=== PATIENT | female | born 1960 | race Hispanic/Latino ===

== ENCOUNTER → 2018-12-27 | Outpatient (CLI) | payer OTHER ==
[~2018-12-27] MED LIST: HONEY 1 APPL/ML TUBE TP ONE
[2018-12-27 16:19] VITALS: BP 119/72
== END | disposition home or self-care (01) ==
LOC: WHH 13:15
PROVIDERS: ATTEND Family Medicine
DX: S61.002D Unspecified open wound of left thumb without damage to nail, subsequent encounter (principal); S61.001D Unspecified open wound of right thumb without damage to nail, subsequent encounter; S61.202D Unspecified open wound of right middle finger without damage to nail, subsequent encounter; S61.205D Unspecified open wound of left ring finger without damage to nail, subsequent encounter; E11.9 Type 2 diabetes mellitus without complications; F41.9 Anxiety disorder, unspecified; X58.XXXD Exposure to other specified factors, subsequent encounter
CPT/HCPCS: 11042; 87070; 87077; 87186; 88304; A4450; G0463

== ENCOUNTER → 2019-01-03 | Outpatient (CLI) | payer OTHER, MEDICARE ==
[~2019-01-03] MED LIST changes: -HONEY 1 APPL/ML TUBE TP ONE; +LIDOCAINE/PRILOCAINE CREAM 5GM TUBE TP ONE
[2019-01-03 16:46] VITALS: BP 98/56
== END | disposition home or self-care (01) ==
LOC: WHH 14:30
PROVIDERS: ATTEND Family Medicine
DX: S61.205D Unspecified open wound of left ring finger without damage to nail, subsequent encounter (principal); S61.402D Unspecified open wound of left hand, subsequent encounter; S61.001D Unspecified open wound of right thumb without damage to nail, subsequent encounter; S61.202D Unspecified open wound of right middle finger without damage to nail, subsequent encounter; E11.9 Type 2 diabetes mellitus without complications; F41.9 Anxiety disorder, unspecified; X58.XXXD Exposure to other specified factors, subsequent encounter
CPT/HCPCS: 11042; A6248; J3490

== ENCOUNTER → 2019-01-10 | Outpatient (CLI) | payer OTHER, MEDICARE ==
[2019-01-10 16:21] VITALS: BP 125/70
== END | disposition home or self-care (01) ==
LOC: WHH 13:30
PROVIDERS: ATTEND Family Medicine
DX: S61.203D Unspecified open wound of left middle finger without damage to nail, subsequent encounter (principal); S61.402D Unspecified open wound of left hand, subsequent encounter; S61.202D Unspecified open wound of right middle finger without damage to nail, subsequent encounter; S61.001D Unspecified open wound of right thumb without damage to nail, subsequent encounter; B07.9 Viral wart, unspecified; E11.9 Type 2 diabetes mellitus without complications; L84 Corns and callosities; F41.9 Anxiety disorder, unspecified; X58.XXXD Exposure to other specified factors, subsequent encounter
CPT/HCPCS: 11056; J3490

== ENCOUNTER → 2019-01-17 | Outpatient (CLI) | payer OTHER, MEDICARE ==
[2019-01-17 16:25] VITALS: BP_SYST 113; BP_SYST 99; BP_DIAS 61; BP_DIAS 70
== END | disposition home or self-care (01) ==
LOC: WHH 13:00
PROVIDERS: ATTEND Family Medicine
DX: S61.203D Unspecified open wound of left middle finger without damage to nail, subsequent encounter (principal); S61.402D Unspecified open wound of left hand, subsequent encounter; S61.202D Unspecified open wound of right middle finger without damage to nail, subsequent encounter; S61.001D Unspecified open wound of right thumb without damage to nail, subsequent encounter; B07.9 Viral wart, unspecified; E11.9 Type 2 diabetes mellitus without complications; L84 Corns and callosities; F41.9 Anxiety disorder, unspecified; X58.XXXD Exposure to other specified factors, subsequent encounter
CPT/HCPCS: 11056; J3490

== ENCOUNTER → 2019-01-24 | Outpatient (CLI) | payer OTHER, MEDICARE ==
[~2019-01-24] MED LIST changes: +LIDOCAINE HCL 2% JELLY 5 ML ONE; -LIDOCAINE/PRILOCAINE CREAM 5GM TUBE TP ONE
[2019-01-24 16:30] VITALS: BP 112/64
== END | disposition home or self-care (01) ==
LOC: WHH 13:00
PROVIDERS: ATTEND Family Medicine
DX: S61.202D Unspecified open wound of right middle finger without damage to nail, subsequent encounter (principal); S61.203D Unspecified open wound of left middle finger without damage to nail, subsequent encounter; S61.402D Unspecified open wound of left hand, subsequent encounter; S61.001D Unspecified open wound of right thumb without damage to nail, subsequent encounter; B07.9 Viral wart, unspecified; E11.9 Type 2 diabetes mellitus without complications; L84 Corns and callosities; F41.9 Anxiety disorder, unspecified; X58.XXXD Exposure to other specified factors, subsequent encounter
CPT/HCPCS: 11042; 87070; A6248

== ENCOUNTER → 2019-01-31 | Outpatient (CLI) | payer OTHER, MEDICARE ==
[2019-01-31 14:57] VITALS: BP 110/80
== END | disposition home or self-care (01) ==
LOC: WHH 13:00
PROVIDERS: ATTEND Family Medicine
DX: S61.202D Unspecified open wound of right middle finger without damage to nail, subsequent encounter (principal); S61.203D Unspecified open wound of left middle finger without damage to nail, subsequent encounter; S61.402D Unspecified open wound of left hand, subsequent encounter; S61.001D Unspecified open wound of right thumb without damage to nail, subsequent encounter; E11.9 Type 2 diabetes mellitus without complications; B07.9 Viral wart, unspecified; F41.9 Anxiety disorder, unspecified; X58.XXXD Exposure to other specified factors, subsequent encounter
CPT/HCPCS: G0463

== ENCOUNTER → 2019-02-07 | Outpatient (CLI) | payer OTHER, MEDICARE ==
[~2019-02-07] MED LIST changes: -LIDOCAINE HCL 2% JELLY 5 ML ONE; +LIDOCAINE/PRILOCAINE CREAM 5GM TUBE TP ONE
[2019-02-07 15:29] VITALS: BP 97/56
== END | disposition home or self-care (01) ==
LOC: WHH 13:00
PROVIDERS: ATTEND Family Medicine
DX: S61.202D Unspecified open wound of right middle finger without damage to nail, subsequent encounter (principal); S61.203D Unspecified open wound of left middle finger without damage to nail, subsequent encounter; S61.402D Unspecified open wound of left hand, subsequent encounter; S61.001D Unspecified open wound of right thumb without damage to nail, subsequent encounter; E11.9 Type 2 diabetes mellitus without complications; B07.9 Viral wart, unspecified; F41.9 Anxiety disorder, unspecified; X58.XXXD Exposure to other specified factors, subsequent encounter
CPT/HCPCS: 11426; J3490; 17110

== ENCOUNTER → 2019-02-14 | Outpatient (CLI) | payer OTHER, MEDICARE ==
[2019-02-14 14:16] VITALS: BP 109/56
--- NOTE | 2019-02-14 14:31 | NUR ---
[facility]ARIMI PERFORMED SURGICAL EXCISION TO WOUNDS #1,2,3,4 WITHOUT INCIDENT, PATIENT TOLERATED PROCEDURE WELL. Addendum: 02/14/19 at 1440 by SID HUTCHINSON LVN Amended: Links added.
== END | disposition home or self-care (01) ==
LOC: WHH 13:00
PROVIDERS: ATTEND Family Medicine
DX: S61.202D Unspecified open wound of right middle finger without damage to nail, subsequent encounter (principal); S61.203D Unspecified open wound of left middle finger without damage to nail, subsequent encounter; S61.402D Unspecified open wound of left hand, subsequent encounter; S61.002D Unspecified open wound of left thumb without damage to nail, subsequent encounter; S61.001D Unspecified open wound of right thumb without damage to nail, subsequent encounter; E11.9 Type 2 diabetes mellitus without complications; B07.9 Viral wart, unspecified; F41.9 Anxiety disorder, unspecified; X58.XXXD Exposure to other specified factors, subsequent encounter
CPT/HCPCS: 11426; J3490; 17110

== ENCOUNTER → 2019-02-28 | Outpatient (CLI) | payer OTHER, MEDICARE ==
[2019-02-28 15:18] VITALS: BP 109/68
--- NOTE | 2019-02-28 15:33 | NUR ---
[facility] PERFORMED EXCISION OF A BENIGN LESION X4 WITHOUT INCIDENT; PATIENT TOLERATED WELL. Addendum: 02/28/19 at 1535 by SID HUTCHINSON LVN Amended: Links added.
== END | disposition home or self-care (01) ==
LOC: WHH 13:00
PROVIDERS: ATTEND Family Medicine
DX: S61.202D Unspecified open wound of right middle finger without damage to nail, subsequent encounter (principal); S61.203D Unspecified open wound of left middle finger without damage to nail, subsequent encounter; S61.402D Unspecified open wound of left hand, subsequent encounter; S61.001D Unspecified open wound of right thumb without damage to nail, subsequent encounter; E11.9 Type 2 diabetes mellitus without complications; L84 Corns and callosities; B07.9 Viral wart, unspecified; F41.9 Anxiety disorder, unspecified; X58.XXXD Exposure to other specified factors, subsequent encounter
CPT/HCPCS: 11426; A6248

== ENCOUNTER → 2019-03-07 | Outpatient (CLI) | payer OTHER, MEDICARE ==
[2019-03-07 14:35] VITALS: BP 117/66
--- NOTE | 2019-03-07 16:49 | NUR ---
[facility] PERFORMED EXCISION OF A BENIGN LESION TO BILATERAL HANDS WITHOUT INCIDENT; PATIENT TOLERATED PROCEDURE WELL. Addendum: 03/07/19 at 1651 by SID HUTCHINSON LVN Amended: Links added.
== END | disposition home or self-care (01) ==
LOC: WHH 13:00
PROVIDERS: ATTEND Family Medicine
DX: S61.202D Unspecified open wound of right middle finger without damage to nail, subsequent encounter (principal); S61.203D Unspecified open wound of left middle finger without damage to nail, subsequent encounter; S61.001D Unspecified open wound of right thumb without damage to nail, subsequent encounter; S61.002D Unspecified open wound of left thumb without damage to nail, subsequent encounter; E11.9 Type 2 diabetes mellitus without complications; B07.9 Viral wart, unspecified; F41.9 Anxiety disorder, unspecified; X58.XXXD Exposure to other specified factors, subsequent encounter
CPT/HCPCS: 11426; J3490

== ENCOUNTER → 2019-03-21 | Outpatient (CLI) | payer OTHER, MEDICARE ==
[2019-03-21 16:04] VITALS: BP 126/73
== END | disposition home or self-care (01) ==
LOC: WHH 13:00
PROVIDERS: ATTEND Family Medicine
DX: S61.202D Unspecified open wound of right middle finger without damage to nail, subsequent encounter (principal); S61.203D Unspecified open wound of left middle finger without damage to nail, subsequent encounter; S61.001D Unspecified open wound of right thumb without damage to nail, subsequent encounter; S61.002D Unspecified open wound of left thumb without damage to nail, subsequent encounter; L84 Corns and callosities; E11.9 Type 2 diabetes mellitus without complications; B07.9 Viral wart, unspecified; F41.9 Anxiety disorder, unspecified; X58.XXXD Exposure to other specified factors, subsequent encounter
CPT/HCPCS: 11426; J3490

== ENCOUNTER → 2019-04-04 | Outpatient (CLI) | payer OTHER, MEDICARE ==
[2019-04-04 16:19] VITALS: BP 123/61
== END | disposition home or self-care (01) ==
LOC: WHH 13:30
PROVIDERS: ATTEND Family Medicine
DX: S61.202D Unspecified open wound of right middle finger without damage to nail, subsequent encounter (principal); S61.203D Unspecified open wound of left middle finger without damage to nail, subsequent encounter; S61.001D Unspecified open wound of right thumb without damage to nail, subsequent encounter; S61.402D Unspecified open wound of left hand, subsequent encounter; L84 Corns and callosities; E11.9 Type 2 diabetes mellitus without complications; B07.9 Viral wart, unspecified; F41.9 Anxiety disorder, unspecified; X58.XXXD Exposure to other specified factors, subsequent encounter
CPT/HCPCS: 11426; J3490

== ENCOUNTER → 2019-04-11 | Outpatient (CLI) | payer OTHER, MEDICARE ==
[2019-04-11 14:58] VITALS: BP 106/55
== END | disposition home or self-care (01) ==
LOC: WHH 13:00
PROVIDERS: ATTEND Family Medicine
DX: S61.202D Unspecified open wound of right middle finger without damage to nail, subsequent encounter (principal); S61.203D Unspecified open wound of left middle finger without damage to nail, subsequent encounter; S61.001D Unspecified open wound of right thumb without damage to nail, subsequent encounter; S61.402D Unspecified open wound of left hand, subsequent encounter; L84 Corns and callosities; E11.9 Type 2 diabetes mellitus without complications; B07.9 Viral wart, unspecified; F41.9 Anxiety disorder, unspecified; X58.XXXD Exposure to other specified factors, subsequent encounter
CPT/HCPCS: 11426; J3490

== ENCOUNTER → 2019-04-21 | Outpatient (CLI) | payer OTHER, MEDICARE ==
[~2019-04-21] MED LIST changes: +IOHEXOL 350 MG/ML 100ML INFUS..BTL IV ONE; -LIDOCAINE/PRILOCAINE CREAM 5GM TUBE TP ONE
== END | disposition home or self-care (01) ==
LOC: RAH 08:58
PROVIDERS: ATTEND Internal Medicine Gastroenterology
DX: R10.13 Epigastric pain (principal)
CPT/HCPCS: 74178; Q9967

== ENCOUNTER → 2019-04-25 | Outpatient (CLI) | payer OTHER, MEDICARE ==
[~2019-04-25] MED LIST changes: -IOHEXOL 350 MG/ML 100ML INFUS..BTL IV ONE; +LIDOCAINE HCL 2% JELLY 5 ML ONE
[2019-04-25 15:42] VITALS: BP 101/64
== END | disposition home or self-care (01) ==
LOC: WHH 13:00
PROVIDERS: ATTEND Family Medicine
DX: S61.202D Unspecified open wound of right middle finger without damage to nail, subsequent encounter (principal); S61.203D Unspecified open wound of left middle finger without damage to nail, subsequent encounter; S61.001D Unspecified open wound of right thumb without damage to nail, subsequent encounter; S61.402D Unspecified open wound of left hand, subsequent encounter; E11.9 Type 2 diabetes mellitus without complications; B07.9 Viral wart, unspecified; F41.9 Anxiety disorder, unspecified; X58.XXXD Exposure to other specified factors, subsequent encounter
CPT/HCPCS: 11426

== ENCOUNTER → 2019-05-02 | Outpatient (CLI) | payer OTHER, MEDICARE ==
[2019-05-02 14:28] VITALS: BP 113/74
== END | disposition home or self-care (01) ==
LOC: WHH 13:05
PROVIDERS: ATTEND Family Medicine
DX: S61.203D Unspecified open wound of left middle finger without damage to nail, subsequent encounter (principal); S61.202D Unspecified open wound of right middle finger without damage to nail, subsequent encounter; S61.001D Unspecified open wound of right thumb without damage to nail, subsequent encounter; S61.402D Unspecified open wound of left hand, subsequent encounter; E11.9 Type 2 diabetes mellitus without complications; F41.9 Anxiety disorder, unspecified; L84 Corns and callosities; B07.9 Viral wart, unspecified; X58.XXXD Exposure to other specified factors, subsequent encounter
CPT/HCPCS: 11042

== ENCOUNTER → 2019-05-09 | Outpatient (CLI) | payer OTHER, MEDICARE ==
[~2019-05-09] MED LIST changes: -LIDOCAINE HCL 2% JELLY 5 ML ONE; +LIDOCAINE/PRILOCAINE CREAM 5GM TUBE TP ONE
[2019-05-09 14:01] VITALS: BP 221/115
[2019-05-09 14:39] VITALS: BP 106/61
--- NOTE | 2019-05-09 15:22 | NUR ---
INADVERTENTLY DOCUMENTED INCORRECT VITALS AND INCORRECT WOUND CARE FOR THIS PATIENT ON 05/09/2019 @ 1403 Addendum: 05/09/19 at 1525 by BINH CORREA LVN LVN W Amended: Links added.
== END | disposition home or self-care (01) ==
LOC: WHH 13:00
PROVIDERS: ATTEND Family Medicine
DX: S61.203D Unspecified open wound of left middle finger without damage to nail, subsequent encounter (principal); S61.202D Unspecified open wound of right middle finger without damage to nail, subsequent encounter; S61.002D Unspecified open wound of left thumb without damage to nail, subsequent encounter; S61.001D Unspecified open wound of right thumb without damage to nail, subsequent encounter; E11.9 Type 2 diabetes mellitus without complications; F41.9 Anxiety disorder, unspecified; B07.9 Viral wart, unspecified; X58.XXXD Exposure to other specified factors, subsequent encounter
CPT/HCPCS: 11426; J3490

== ENCOUNTER → 2019-05-16 | Outpatient (CLI) | payer OTHER, MEDICARE ==
[2019-05-16 14:38] VITALS: BP 108/53
== END | disposition home or self-care (01) ==
LOC: WHH 13:00
PROVIDERS: ATTEND Family Medicine
DX: S61.203D Unspecified open wound of left middle finger without damage to nail, subsequent encounter (principal); S61.202D Unspecified open wound of right middle finger without damage to nail, subsequent encounter; S61.001D Unspecified open wound of right thumb without damage to nail, subsequent encounter; S61.402D Unspecified open wound of left hand, subsequent encounter; E11.9 Type 2 diabetes mellitus without complications; B07.9 Viral wart, unspecified; F41.9 Anxiety disorder, unspecified; X58.XXXD Exposure to other specified factors, subsequent encounter
CPT/HCPCS: 11422 ×2; J3490; 11426

== ENCOUNTER → 2019-05-23 | Outpatient (CLI) | payer OTHER, MEDICARE ==
[2019-05-23 15:32] VITALS: BP 113/62
== END | disposition home or self-care (01) ==
LOC: WHH 13:00
PROVIDERS: ATTEND Family Medicine
DX: S61.203D Unspecified open wound of left middle finger without damage to nail, subsequent encounter (principal); S61.202D Unspecified open wound of right middle finger without damage to nail, subsequent encounter; S61.002D Unspecified open wound of left thumb without damage to nail, subsequent encounter; S61.001D Unspecified open wound of right thumb without damage to nail, subsequent encounter; E11.9 Type 2 diabetes mellitus without complications; F41.9 Anxiety disorder, unspecified; B07.9 Viral wart, unspecified; X58.XXXD Exposure to other specified factors, subsequent encounter
CPT/HCPCS: G0463; J3490

== ENCOUNTER → 2019-06-06 | Outpatient (CLI) | payer OTHER, MEDICARE ==
[2019-06-06 14:48] VITALS: BP 105/60
== END | disposition home or self-care (01) ==
LOC: WHH 13:00
PROVIDERS: ATTEND Family Medicine
DX: S61.203D Unspecified open wound of left middle finger without damage to nail, subsequent encounter (principal); S61.202D Unspecified open wound of right middle finger without damage to nail, subsequent encounter; S61.002D Unspecified open wound of left thumb without damage to nail, subsequent encounter; S61.001D Unspecified open wound of right thumb without damage to nail, subsequent encounter; B07.9 Viral wart, unspecified; E11.9 Type 2 diabetes mellitus without complications; F41.9 Anxiety disorder, unspecified; L85.8 Other specified epidermal thickening; X58.XXXD Exposure to other specified factors, subsequent encounter
CPT/HCPCS: 11422 ×2; J3490

== ENCOUNTER → 2019-06-27 | Outpatient (CLI) | payer OTHER, MEDICARE ==
[2019-06-27 14:52] VITALS: BP 106/65
== END | disposition home or self-care (01) ==
LOC: WHH 13:15
PROVIDERS: ATTEND Family Medicine
DX: S61.203D Unspecified open wound of left middle finger without damage to nail, subsequent encounter (principal); S61.002D Unspecified open wound of left thumb without damage to nail, subsequent encounter; S61.202D Unspecified open wound of right middle finger without damage to nail, subsequent encounter; S61.001D Unspecified open wound of right thumb without damage to nail, subsequent encounter; E11.9 Type 2 diabetes mellitus without complications; F41.9 Anxiety disorder, unspecified; B07.8 Other viral warts; X58.XXXD Exposure to other specified factors, subsequent encounter
CPT/HCPCS: 11422; 36415; 85651; 86140

== ENCOUNTER → 2019-06-28 | Outpatient (CLI) | payer OTHER, MEDICARE | END | disposition home or self-care (01) | LOC: RAH 13:24 | PROVIDERS: ATTEND Family Medicine | DX: B07.9 Viral wart, unspecified (principal) | CPT/HCPCS: 73130 ==

== ENCOUNTER → 2024-03-29 | Outpatient (CLI) | payer OTHER, MEDICARE ==
[~2024-03-29] MED LIST changes: +IOHEXOL 350 MG/ML 100ML INFUS..BTL IV ONE; -LIDOCAINE/PRILOCAINE CREAM 5GM TUBE TP ONE; +METOPROLOL TARTRATE 1 MG/ML 5ML VIAL IV ONE
== END | disposition home or self-care (01) ==
LOC: RAH 07:48
PROVIDERS: ATTEND Internal Medicine Cardiovascular Disease
DX: R06.02 Shortness of breath (principal); M47.815 Spondylosis without myelopathy or radiculopathy, thoracolumbar region
CPT/HCPCS: 75574; J3490 ×2; Q9967